=== PATIENT | female | born 1955 | race Caucasian/White ===

== ENCOUNTER → 2017-05-10 | Outpatient (CLI) | payer OTHER | LOC: LAB 09:53 | PROVIDERS: ATTEND Nurse Practitioner Family | DX: R53.1 Weakness (principal); R53.83 Other fatigue | CPT/HCPCS: 36415; 82533 ==

== ENCOUNTER 2017-06-28 08:00 | Outpatient (RCR) | payer OTHER ==
[2017-06-15 16:59] VITALS: BP 122/80
[2017-06-15 17:00] VITALS: BP 110/78
--- NOTE | 2017-06-15 17:50 | CARDIAC REHAB PLAN OF CARE ---
Physician: YUN Wagner Patient is being seen: Deangelo Justa Medical Diagnosis: Pacemaker, Stent x 2 (LAD) Date of Initial Evaluation: 06/15/2017 SHORT TERM GOALS Short Term Goals Due Date: 07/15/17 Short Term Goals: 62 year old female phase II patient comes to cardiac rehab after orthodontic laboratory technician visit revealed the need for two stents placed in the LAD on May 18, 2017. PMhx also includes heart cath in 2004 showing 40% occlusion , May 2015 syncopal episode causing a fall followed by the need for an on- demand pacemaker placed in July of 2015. 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 Orthopedically patient has had fx of left wrist, left foot, and left knee meniscus tear. Patient evaluation of 6 minutes walked test showed a 2.2 MPH pace, with SPO2 levels remaining in the mid-90's on room air and the structured cabling technician showing a NSR-ST without ectopy and rates up to 112. Carolin scale was 3-4 during the entire test. THR zone set at 70-75% of max HR (110-120). Weight resistance will start with 2 pound dumbbells and caution or half on the above head or type lift. Goals are to achieve consistent cardio exercise each week of 150 minutes with weight resistance at least twice a week. Patient has been following a diabetic type diet and will continue with attention to portion control to allow for gradual weight loss towards her BMI max healthy weight of 132 pounds. Pt. current weight at 177 pounds. Short Term Goals Met: Short Term Goals Not Met Due To: JAIL GOALS Senior Care Goal Due Date: 08/15/17 Thread Winder Goals: alf goals are to maintain that consistency of achieving cardiac rehab exercise protocol, and dietary guidelines. Patient will continue for follow up care with her Physicians. Senior Care Goals Met: Senior Care Goals Not Met Due To: PATIENT'S GOALS Patient Goals Due Date: 07/15/17 Patient Goals: Patient goals are to improve cardiac and overall health, gain strength and endurance. Improve overall quality and length of life. Patient Goals Met: Patient Goals Not Met Due To: Cardiac Rehabilitation Plan of Care Comment: Cardiac rehab staff will monitor, record, and evaluate vitals, ECG, and exercise results to provide the best possible plan of care for the patient throughout the 36 visit phase II program. CR staff will educate and motivate the patient during visits for rehab. VERN
[2017-06-16 13:14] VITALS: BP_SYST 126; BP_SYST 130; BP_DIAS 72; BP_DIAS 76
[2017-06-18 13:13] VITALS: BP 122/80
[2017-06-18 13:14] VITALS: BP 138/86
[2017-06-23 12:48] VITALS: BP 140/76
[2017-06-23 12:49] VITALS: BP 138/82
[2017-06-25 17:44] VITALS: BP 122/70
[2017-06-25 17:46] VITALS: BP 124/68
[2017-06-28 12:46] VITALS: BP 134/82
[2017-06-28 12:47] VITALS: BP 122/86
--- NOTE | 2017-07-15 12:09 | CARDIAC REHAB PLAN OF CARE ---
Physician: MD Milka Patient is being seen: Deangelo Marr Medical Diagnosis: PM, Stent x 2 Date of Initial Evaluation: 06/15/2017 SHORT TERM GOALS Short Term Goals Due Date: 08/15/17 Short Term Goals: 62 year old female phase II patient comes to cardiac rehab after slab lifting engineer visit revealed the need for two stents placed in the LAD on May 18, 2017. PMhx also includes heart cath in 2004 showing 40% occlusion , May 2015 syncopal episode causing a fall followed by the need for an on- demand pacemaker placed in July of 2015. 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 Orthopedically patient has had fx of left wrist, left foot, and left knee meniscus tear. Patient evaluation of 6 minutes walked test showed a 2.2 MPH pace, with SPO2 levels remaining in the mid-90's on room air and the records tech showing a NSR-ST without ectopy and rates up to 112. THR zone set at 70-75% of max HR ( 110-120). Weight resistance will start with 2 pound dumbbells and caution or half on the above head or type lift. Goals are to achieve consistent cardio exercise each week of 150 minutes with weight resistance at least twice a week. Patient has been following a diabetic type diet and will continue with attention to portion control to allow for gradual weight loss towards her BMI max healthy weight of 132 pounds. Pt. current weight at 177 pounds. Short Term Goals Met: Patient has made 6 visits for the cardiac rehab and tolerates 40 minutes of a moderate level of cardio exercise, along with 3 pound dumbbell upper body workout. During exercise SPO2 levels remain in the 90 's on room air and the records tech shows a NSR-ST without ectopy and rates up to 112. Patients THR set at 110-120. Short Term Goals Not Met Due To: Patient recently diagnosed with pneumonia and has not been able to attend cardiac rehab in the month of June. RESIDENTIAL GOALS Generator Man Goal Due Date: 09/14/17 Generator Man Goals: detention goals remain to be consistent with cardio exercise of at least 150 minutes each week of a moderate level, and weight resistance exercise at least twice a week. Patient will also continue to follow a diabetic and heart healthy diet with portion control. Nursing Home Goals Met: Nursing Home Goals Not Met Due To: PATIENT'S GOALS Patient Goals Due Date: 08/15/17 Patient Goals: Patient goals remain the same, and that is to improve health, improve endurance and energy, and extend life. Patient Goals Met: Patient Goals Not Met Due To: Cardiac Rehabilitation Plan of Care Comment: Cardiac rehab staff will continue to monitor, record, and evaluate vitals, ECG, and exercise results to provide the best plan of care for the patient throughout the 36 visit phase II program. VERN
--- NOTE | 2017-08-13 17:53 | CARDIAC REHAB PLAN OF CARE ---
Physician: Mildred MALCOLM Patient is being seen: Deangelo Marr Medical Diagnosis: PM, Stent x 2 Date of Initial Evaluation: June 15, 2017 SHORT TERM GOALS Short Term Goals Due Date: 09/12/17 Short Term Goals: 62 year old female phase II patient comes to cardiac rehab after medical lab technician visit revealed the need for two stents placed in the LAD on May 18, 2017. PMhx also includes heart cath in 2004 showing 40% occlusion , May 2015 syncopal episode causing a fall followed by the need for an on- demand pacemaker placed in July of 2015. 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 Orthopedically patient has had fx of left wrist, left foot, and left knee meniscus tear. Patient evaluation of 6 minutes walked test showed a 2.2 MPH pace, with SPO2 levels remaining in the mid-90's on room air and the rn cardiac showing a NSR-ST without ectopy and rates up to 112. THR zone set at 70-75% of max HR ( 110-120). Weight resistance will start with 2 pound dumbbells and caution or half on the above head or type lift. Goals are to achieve consistent cardio exercise each week of 150 minutes with weight resistance at least twice a week. Patient has been following a diabetic type diet and will continue with attention to portion control to allow for gradual weight loss towards her BMI max healthy weight of 132 pounds. Pt. current weight at 177 pounds. Short Term Goals Met: Patient has made 6 visits for the cardiac rehab and tolerates 40 minutes of a moderate level of cardio exercise, along with 3 pound dumbbell upper body workout. During exercise SPO2 levels remain in the 90 's on room air and the rn cardiac shows a NSR-ST without ectopy and rates up to 112. Patients THR set at 110-120. Short Term Goals Not Met Due To: Patient is still out from pneumonia and has not made any visits to cardiac rehab for 46 days. INTERMEDIATE GOALS Arson Investigator Goal Due Date: 10/13/17 Arson Investigator Goals: FDC goals are going remain same, and upon patient return to the program she will start with her original exercise protocol. Arson Investigator Goals Met: Assisted Goals Not Met Due To: Extended absence from cardiac rehab. PATIENT'S GOALS Patient Goals Due Date: 09/12/17 Patient Goals: Patient goals will remain to improve health and remain active. Patient Goals Met: Patient Goals Not Met Due To: Cardiac Rehabilitation Plan of Care Comment: The cardiac rehab staff will start the patient over with her initial return to cardiac rehab. CR staff will monitor, record, and evaluate vitals, ECG, and exercise results and increase exercise volume as progress is made with consistent visits. CR staff will educate and motivate the patient during visits for rehab. VERN
== END 2017-06-28 18:00 | disposition home or self-care (01) ==
LOC: CARD 08:00
PROVIDERS: ATTEND Internal Medicine Interventional Cardiology
DX: I10 Essential (primary) hypertension (principal); Z95.0 Presence of cardiac pacemaker; Z95.5 Presence of coronary angioplasty implant and graft; Z86.73 Personal history of transient ischemic attack (TIA), and cerebral infarction without residual deficits; Z87.09 Personal history of other diseases of the respiratory system; Z98.890 Other specified postprocedural states; R42 Dizziness and giddiness; R07.9 Chest pain, unspecified
CPT/HCPCS: 93798

== ENCOUNTER → 2018-01-25 | Outpatient (CLI) | payer OTHER ==
[~2018-01-25] MED LIST: ASPI81TA94 PO; CLOP75TA43 PO; GABA-549 PO; GLIP-152 PO; LOSA50TA74 PO; METO50TA19 PO; ROS10 PO; SITA1TAB17 PO
== END ==
LOC: LAB 13:05
PROVIDERS: ATTEND Otolaryngology
DX: K11.8 Other diseases of salivary glands (principal)
CPT/HCPCS: 36415; 82565